=== PATIENT | male | born 1985 | race Two or more races ===

== ENCOUNTER 2023-02-17 03:59 | Inpatient (IN) | payer MEDICAID, OTHER ==
[~2023-02-17] VITALS: Ht 165.1 cm; Wt 59.0 kg
[~2023-02-17 03:59] MED LIST: DICY10CA88 PO; MULT-1146 PO; OMEP20TA23 PO; RANI150T7 PO
[2023-02-17 04:25] LABS: CLARITY URINE CLEAR (CLEAR); COLOR URINE DARK YELLOW (YELLOW); KETONES URINE NEGATIVE (NEGATIVE); LEUKOCYTE ESTERASE URINE TRACE (NEGATIVE); NITRITE URINE NEGATIVE (NEGATIVE); OCCULT BLOOD URINE NEGATIVE (NEGATIVE); PH URINE 7.5 (4.5-8.0); PROTEIN URINE 1+ (NEGATIVE); SPECIFIC GRAVITY URINE 1.027 (1.005-1.030)
[2023-02-17 04:37] LABS: BASOPHILS % 0.2 % (0.0-2.0); EOSINOPHILS % 4.4 % (0.0-5.0); HEMATOCRIT. 50.3 % (42.0-52.0); HEMOGLOBIN. 17.4 g/dL (14.0-18.0); LYMPHOCYTES % 15.2 % (20.0-50.0); MEAN CORPUSCULAR HEMOGLOBIN 32.1 pg (28.0-32.0); MEAN CORPUSCULAR VOLUME 93.1 fL (80.0-94.0); MEAN PLATELET VOLUME 8.8 fl (7.4-10.4); MONOCYTES % 8.9 % (2.0-8.0); NEUTROPHILS % 71.3 % (40.0-76.0); PLATELET 218 x1000/uL (130-400); RED CELL DISTRIBUTION WIDTH 13.1 % (11.6-14.6)
[2023-02-17] MEDS ORDERED: MAGNESIUM/ALUMINUM HYDROXIDE/SIMETHICONE 30ML UDC PO STA (05:13)
[2023-02-17] MEDS ORDERED: ONDANSETRON HCL 4MG/2ML INJ IV STA (05:13)
[2023-02-17] MEDS ORDERED: VISCOUS LIDOCAINE 2% 15 ML UDC PO STA (05:13)
[2023-02-17] MEDS ORDERED: FAMOTIDINE 20MG/2ML VIAL IV STA (05:13)
[2023-02-17] MEDS ORDERED: DICYCLOMINE 10 MG/5 ML ORAL SYR PO STA (05:13)
[2023-02-17] MEDS ORDERED: KETOROLAC 30MG/ML VIAL IV STA (05:13)
[2023-02-17 05:27] LABS: CHLORIDE 95 mEq/L (98-107)
[2023-02-17] MEDS ORDERED: ONDANSETRON HCL 4MG/2ML INJ IV ONE (06:15)
[2023-02-17] MEDS ORDERED: ONDANSETRON HCL 4MG/2ML INJ IV PRN (08:15)
[2023-02-17] MEDS ORDERED: IPRATROPIUM/ALBUTEROL 0.5-3(2.5)MG/3ML NEB NEB PRN (08:15)
[2023-02-17] MEDS ORDERED: NALOXONE HCL 0.4MG/ML VIAL IV PRN (08:30)
[2023-02-17] MEDS: ENOXAPARIN 40MG/0.4ML SYR SUBCUT SCH (09:00)
[2023-02-17] MEDS ORDERED: KCL 20MEQ/100ML PREMIX 100 ML IV NR (14:30)
[2023-02-17 18:37] LABS: HEPATITIS B SURFACE ANTIGEN NEGATIVE
[2023-02-17 20:00] VITALS: BP 115/70
[2023-02-17] MEDS: DEXT 5%/0.9% NACL 1,000 ML IV SCH (20:34)
[2023-02-17] MEDS: MORPHINE SULFATE 2 MG/ML CPJ (NOT FOR IM USE) IV PRN (23:11)
[2023-02-18] VITALS: BP 109/65
[2023-02-18 04:00] VITALS: BP 99/60
[2023-02-18 06:27] LABS: BASOPHILS % 0.2 % (0.0-2.0); HEMATOCRIT. 40.6 % (42.0-52.0); HEMOGLOBIN. 14.3 g/dL (14.0-18.0); LYMPHOCYTES % 18.6 % (20.0-50.0); MEAN CORPUSCULAR HEMOGLOBIN 32.7 pg (28.0-32.0); MEAN PLATELET VOLUME 9.1 fl (7.4-10.4); MONOCYTES % 9.1 % (2.0-8.0); NEUTROPHILS % 69.1 % (40.0-76.0); PLATELET 190 x1000/uL (130-400); RED BLOOD CELL COUNT 4.37 mill/uL (4.7-6.1)
[2023-02-18 06:39] LABS: CHLORIDE 110 mEq/L (98-107)
[2023-02-18 08:00] VITALS: BP 94/53
[2023-02-18] MEDS: DEXT 5%/0.9% NACL 1,000 ML IV SCH ×2 (08:43→21:00)
[2023-02-18] MEDS: ENOXAPARIN 40MG/0.4ML SYR SUBCUT SCH (08:45)
[2023-02-18 12:00] VITALS: BP 98/49
[2023-02-18 16:00] VITALS: BP 104/58
[2023-02-18 20:00] VITALS: BP 111/66
[2023-02-18] MEDS: MORPHINE SULFATE 2 MG/ML CPJ (NOT FOR IM USE) IV PRN (23:13)
[2023-02-19] VITALS: BP 90/59
[2023-02-19 04:00] VITALS: BP 98/58
[2023-02-19 08:00] VITALS: BP 114/65
[2023-02-19 08:20] LABS: BASOPHILS % 0.2 % (0.0-2.0); EOSINOPHILS % 2.2 % (0.0-5.0); HEMATOCRIT. 42.7 % (42.0-52.0); HEMOGLOBIN. 14.7 g/dL (14.0-18.0); LYMPHOCYTES % 12.1 % (20.0-50.0); MEAN CORPUSCULAR HEMOGLOBIN 32.8 pg (28.0-32.0); MEAN CORPUSCULAR VOLUME 94.8 fL (80.0-94.0); MEAN PLATELET VOLUME 9.5 fl (7.4-10.4); MONOCYTES % 7.2 % (2.0-8.0); NEUTROPHILS % 78.3 % (40.0-76.0); PLATELET 192 x1000/uL (130-400); RED CELL DISTRIBUTION WIDTH 12.5 % (11.6-14.6)
[2023-02-19 08:38] LABS: CHLORIDE 111 mEq/L (98-107)
[2023-02-19 08:48] LABS: PHOSPHORUS 2.4 mg/dL (2.5-4.9)
[2023-02-19] MEDS: DEXT 5%/0.9% NACL 1,000 ML IV SCH (10:11)
[2023-02-19] MEDS: ENOXAPARIN 40MG/0.4ML SYR SUBCUT SCH (10:11)
[2023-02-19 12:00] VITALS: BP 121/78
[2023-02-19] MEDS ORDERED: MOM MT (14:40)
[2023-02-19] MEDS ORDERED: WHEA152P PO (14:40)
[2023-02-19 14:50] VITALS: BP 121/78
== END 2023-02-19 16:15 | disposition home or self-care (01) | DRG 247 ==
LOC: ER 03:59 → 5EST 06:37 → SUPCPDRO 07:43 → 5EST 12:13 → 6EST 19:20
PROVIDERS: ADMIT Internal Medicine; ATTEND Internal Medicine
PROC: 0D9670Z Drainage of Stomach with Drainage Device, Via Natural or Artificial Opening (ICD-10-PCS; principal; 2023-02-17)
DX: K56.609 Unspecified intestinal obstruction, unspecified as to partial versus complete obstruction (principal); D72.829 Elevated white blood cell count, unspecified; K57.30 Diverticulosis of large intestine without perforation or abscess without bleeding; R74.01 Elevation of levels of liver transaminase levels; E87.6 Hypokalemia; Z79.899 Other long term (current) drug therapy
CPT/HCPCS: 36415; 71045; 74018; 74176; 80048; 80053; 80076; 81003; 83735; 84100; 85025; 86705; 86709; 86803; 87340; 93005; 99291; J1650; J1885; J2270; J2405; J3480; J3490; J7042

== ENCOUNTER 2025-08-10 06:07 | Emergency (ER) | payer MEDICAID ==
[~2025-08-10] VITALS: Ht 167.6 cm; Wt 53.0 kg
[~2025-08-10 06:07] MED LIST changes: +DICY-18 PO; -DICY10CA88 PO; +MOM MT; +WHEA152P PO
[2025-08-10 06:16] VITALS: O2SAT 99
[2025-08-10] MEDS: LORAZEPAM 0.5MG TABLET PO ONE (06:36)
[2025-08-10 07:04] VITALS: BP 110/76; PULSE 80; RESP 20; TEMP 36.8; O2SAT 96
== END 2025-08-10 07:13 | disposition home or self-care (01) ==
LOC: ER 06:07
DX: T43.621A Poisoning by amphetamines, accidental (unintentional), initial encounter (principal); F41.1 Generalized anxiety disorder; F15.90 Other stimulant use, unspecified, uncomplicated; Z79.899 Other long term (current) drug therapy; Y92.89 Other specified places as the place of occurrence of the external cause
CPT/HCPCS: 99283